=== PATIENT | female | born 1940 | race Caucasian/White ===

== ENCOUNTER 2016-09-02 14:27 | Emergency (ER) | payer OTHER, MEDICARE ==
[~2016-09-02] VITALS: Ht 157.5 cm; Wt 45.4 kg
--- NOTE | ~2016-09-02 | EKG ---
[place] [address] [facility] [place] [address] ELECTROCARDIOGRAM REPORT Name: EDWAR PEREZ Donis Room #: DEP [facility] [place]#: [id number] Admission: 09/02/16 Attend Phys: Discharge: 09/02/16 Date of : 42 Report #: [id number] THIS REPORT FOR: //name// [facility] ED Test Date: 2016-09-02 Test Time: 15:27:00 Pat Name: EDWAR PEREZ Department: Room: Gender: F House Manager: [id number] : 1940 Requested By: Kristi Jacobson Order Number: [id number] MD: Andrez Cisneros Measurements Intervals [place] Rate: 86 P: 21 UT: 158 QRS: -10 QRSD: 92 T: 58 QT: 381 QTc: 456 Interpretive Statements Sinus rhythm Abnormal R-wave progression, early transition No previous ECG available for comparison Electronically Signed On 09-03-2016 8:58:12 CDT by Andrez Cisneros [email or web address] <ELECTRONICALLY SIGNED> By: Andrez Cisneros MD, [facility] 09/03/16 0858 1527 1527 Andrez Cisneros MD, FACC /EPI
[~2016-09-02 14:27] MED LIST: LORTABELXR PO
[2016-09-02 15:24] LABS: ABSOLUTE NEUTROPHILS 3.8 thou/uL (1.4-8.2); BASOPHILS 0.7 % (0.0-2.0); EOSINOPHILS 4.1 % (0.0-3.0); HEMATOCRIT 26.8 % (37.0-47.0); HEMOGLOBIN 8.7 gm/dL (12.0-15.0); LYMPHOCYTES 25.5 % (24.0-44.0); MCH 24.7 pg (26.0-34.0); MCHC 32.4 g/dL (28.0-37.0); MCV 76.3 fL (80.0-100.0); MONOCYTES 8.1 % (1.0-8.0); PLATELET COUNT 337 thou/uL (150-400); POLYS 61.6 % (36.0-66.0); RBC 3.52 mil/uL (4.20-5.00); RDW 15.9 % (10.5-14.5); WBC 6.2 thou/uL (4.0-11.0)
[2016-09-02 15:25] LABS: MANUAL DIFF NO
[2016-09-02 15:29] LABS: CREATININE 0.5 mg/dL (0.6-1.0); POTASSIUM 4.3 mmol/L (3.5-5.1)
[2016-09-02 15:32] LABS: URINE BILIRUBIN NEGATIVE (Negative); URINE BLOOD NEGATIVE (Negative); URINE COLOR YELLOW; URINE GLUCOSE-RANDOM* NEGATIVE (Negative); URINE KETONES NEGATIVE (Negative); URINE NITRITE NEGATIVE (Negative); URINE PROTEIN (DIPSTICK) NEGATIVE (Negative); URINE SPECIFIC GRAVITY <= 1.005 (1.003-1.035); URINE UROBILINOGEN 0.2 E.U./dl (0.2-1.0)
[2016-09-02 15:33] LABS: ALBUMIN 3.8 g/dL (3.4-5.0); TOTAL BILIRUBIN 0.3 mg/dL (<0.1-1.0); TOTAL PROTEIN 7.4 g/dL (6.4-8.2)
[2016-09-02] MEDS ORDERED: IRON325 PO (16:25)
[2016-09-02] MEDS ORDERED: TRIAMCINOLONE A80 G2 TOP (16:28)
[2016-09-02 17:03] VITALS: BP 145/79
== END 2016-09-02 16:29 | disposition home or self-care (01) ==
LOC: ER 14:27
PROVIDERS: Physician Assistant
DX: G89.29 Other chronic pain (principal); M54.5 Low back pain; D64.9 Anemia, unspecified; L25.8 Unspecified contact dermatitis due to other agents; Z88.2 Allergy status to sulfonamides

== ENCOUNTER → 2017-10-07 | Outpatient (CLI) | payer OTHER, MEDICARE ==
[~2017-10-07] VITALS: Ht 149.9 cm; Wt 44.5 kg
[~2017-10-07] MED LIST changes: +ALENDRONATE SOD70 MG PO; +IRON325 PO; +NEURONTIN 300300 M1 PO; +PERCOCET PO; +SYNTHROID88 MCG PO; +TRIAMCINOLONE A80 G2 TOP
--- NOTE | ~2017-10-07 | PATH ---
[facility] [address] [place] [address] PATHOLOGY RPT PROCEDURE Name: ANGIE LIM Room #: REG LO Mary Alice.Maxine.#: [id number] Admission: 10/07/17 Date of : 42 Discharge: Report #: [id number] Path Case #: [id number] [facility] Accession Number: [id number] . 01 Material submitted: . PART A: BX SMALL BOWEL, R/O SPRUE PART B: BX GASTRITIS, R/O H. PYLORI PART C: POLYP AT RECTOSIGMOID COLON . 01 Clinical history: . Pre-OP DX: Low hemoglobin Post-OP DX: Gastritis, gastric ulcers, colon polyp . 02 Diagnosis: A. Small bowel mucosa, small bowel rule out sprue, endoscopic biopsy: - No diagnostic abnormalities present. - Negative for villous blunting or increase in intraepithelial lymphocytes. . B. Gastric mucosa, gastritis rule out H. pylori, endoscopic biopsy: - Mild reactive gastropathy. - Negative for intestinal metaplasia or atrophy. - Negative for Helicobacter pylori (properly controlled immunohistochemical stain performed). . C. Polyp, at rectosigmoid colon, endoscopic biopsy: - TUBULOVILLOUS ADENOMA WITH FOCAL HIGH GRADE DYSPLASIA. - Margin free of high-grade dysplasia. (IUV:sam; 10/10/2017) QMS/10/11/2017 . 02 Comment: Part C was coreviewed with Dr. Ivania Flores. . 02 Electronically signed: . Alondra Monk MD, Pathologist NPI- [id number] . 01 Gross description: . A. Received in formalin labeled "Angie Lim, BX small bowel, rule out sprue," are 3 segments of steele soft tissue measuring 0.9 x 0.6 x 0.2 cm in aggregate dimensions and ranging from 0.3 to 0.4 cm in maximum dimension. The specimen is submitted entirely in cassette A1. . B. Received in formalin labeled "Angie Lim, BX gastritis," are 2 segments of steele soft tissue measuring 1.1 x 0.3 x 0.2 cm in aggregate dimensions and ranging from 0.5 to 0.6 cm in maximum dimension. [facility] [address] [place] [address] PATHOLOGY RPT PROCEDURE Name: LIMANGIE E [id number] Admission: 10/07/17 Date of : 42 Discharge: Report #: [id number] Path Case #: [id number] specimen is submitted entirely in cassette B1. . C. Received in formalin labeled "Angie Lim, polyp at recto sigmoid colon," is a 0.8 x 0.6 x 0.5 cm polypoid piece of dark steele soft tissue with a stalk measuring 1.0 cm in length and 0.8 cm in diameter. The margin of the stalk is inked and the specimen is sectioned perpendicular to the margin and entirely submitted in cassette C1. (TSD; 10/07/2017) TOB/TOB . 02 Pathologist provided ICD-10: K31.9, D12.7 . 02 CPT . 170194, 992171, 704308, K52131 Performed at: [address], [place] [id number] MD Jerome Zhu MD Phone: [phone] Performed at: [address] [id number] MD Alondra Monk MD Phone: [phone]
--- NOTE | ~2017-10-07 | P ---
[facility] [address] [place] [address] PROCEDURE REPORT Name: EDWAR PEREZ Room #: REG [facility] Reza#: [id number] Admission: 10/07/17 Attend Phys: David Marrero Discharge: Date of : 42 Report #: [id number] THIS REPORT FOR: //name// CC: David Medina MD DATE OF SERVICE: 10/07/2017 PROCEDURE PERFORMED: Upper endoscopy with biopsies and esophageal dilation. HISTORY OF PRESENT ILLNESS: The patient is a 77-year-old female who is feeling increased generalized fatigue. Routine labs by her primary physician showed a hemoglobin of 5 recently, she was transfused 2 units of packed cells. She is feeling better at this time. She has been taking Aleve on a regular basis. This was held 2 days ago. She has had a history of dysphagia as well and as well as food impaction in the past. She does not take any antacids. She denies any significant reflux. Plan is for EGD and colonoscopy today. DESCRIPTION OF PROCEDURE: The risks and benefits of the procedure were explained to the patient, those risks including but not limited to bleeding, perforation, the risk of sedation. She understood these risks and gave informed consent. Sedation was given using propofol per Anesthesia. Next, using a standard Olympus upper endoscope, the scope was placed in the patient's mouth and advanced under direct vision through the esophagus, stomach and into the second portion of the duodenum. The larynx was normal in appearance. The upper and mid esophagus was mildly dilated, but otherwise normal. In the distal esophagus at the GE junction, there was a mild Schatzki's ring. Upon entering the stomach, a small hiatal hernia was noted. Multiple gastric ulcers with gastritis were noted throughout the stomach. All these were clean and white base, about approximately 3-5 mm in size. No evidence of bleeding. In the antrum; however, there was a single larger and deep ulcer, approximately 1.2 cm in size, also clean and white based. No evidence of visible vessel or clot. Again, there was no evidence of blood on exam today. This was a prepyloric ulcer. The pylorus was normal and patent. The duodenal bulb, first and second portion were all normal. Random biopsies of the duodenum were obtained to rule out the possibility of celiac sprue. The scope was then brought back into the stomach. Biopsies were obtained to rule out H. pylori. Next, a Savary guidewire was inserted through the scope, leaving the wire in place as the scope was then withdrawn. Next, a 48-Serbian Savary dilation of the esophagus was then performed without difficulty. The wire and dilator removed. The scope was reintroduced into the patient's stomach. A small mucosal tear at the Schatzki's ring was noted. No significant bleeding. The scope was then withdrawn and the procedure terminated. The patient tolerated the procedure well. IMPRESSION: [facility] [address] [place] [address] PROCEDURE REPORT Name: CHRISEDWAR Room #: SHANNAN Cobb#: [id number] Admission: 10/07/17 Attend Phys: David Marrero Discharge: Date of : 42 Report #: [id number] 1. Mild Schatzki's ring, status post dilation. 2. Small hiatal hernia. 3. Diffuse gastritis with multiple small ulcers in the gastric fundus and body. 4. Larger ulcer in the gastric antrum, approximately 1.2 cm, likely source of recent gastrointestinal bleed. No stigmata of bleeding at this time. No visible vessel. 5. Otherwise, normal upper endoscopy. RECOMMENDATIONS: 1. Await biopsy results. 2. Recommend daily PPI therapy indefinitely and continue to hold NSAIDs for the next 2 weeks. 3. Observe the patient post-dilation. 4. We will proceed with colonoscopy next today. Thank you for allowing me to participate in her care. <ELECTRONICALLY SIGNED> By: David Perdomo MD 10/08/17 1039 0919 1406 David Perdomo MD /nt
--- NOTE | ~2017-10-07 | P ---
[facility] [place] [address] [place] [address] PROCEDURE REPORT Name: EDWAR PEREZ Room #: REG [facility] Reza#: [id number] Admission: 10/07/17 Attend Phys: David Marrero Discharge: Date of : 42 Report #: [id number] THIS REPORT FOR: //name// CC: David Medina MD DATE OF SERVICE: 10/07/2017 PROCEDURE PERFORMED: Colonoscopy with polypectomy. HISTORY OF PRESENT ILLNESS: The patient is a 77-year-old female with recent history of generalized fatigue. Routine labs showed a hemoglobin of 5. She was transfused 2 units. She denies any melanotic stools. She did notice a small amount of bright red blood per rectum with the prep last evening. Upper endoscopy was just performed, which showed multiple gastric ulcers, most were small, clean, white-based in the stomach, larger one was noted in the antrum, suspect this may be the source of her anemia. There was no active bleeding. The patient has been taking Aleve on a regular basis for chronic pain. She had not been on any PPI therapy. She states her last colonoscopy was at least 20 years ago, if not longer. She does have a family history of colon cancer in her grandmother. DESCRIPTION OF PROCEDURE: The risks and benefits of the procedure were explained to the patient, those risks including but not limited to bleeding, perforation, the risk of sedation. She understood these risks and gave informed consent. Sedation was given using propofol per Anesthesia. Next, a digital rectal exam was initially performed, which was normal. Next, using a standard Olympus colonoscope, the scope was placed in the patient's anus and advanced under direct vision to the cecum. The overall prep was good. Cecum and ileocecal valve were normal in appearance. Ascending, transverse and descending colon were normal. Multiple diverticula were noted in the sigmoid colon. At the rectosigmoid colon at 15, a 1.5 cm pedunculated polyp was noted. This was removed by snare cautery in total. The rectal mucosa was normal. On retroflexion, no abnormalities were noted. The scope was then withdrawn and the procedure terminated. The patient tolerated the procedure well. IMPRESSION: 1. Sigmoid diverticulosis. 2. Polyp in the rectosigmoid colon, removed. 3. Otherwise, normal colonoscopy. RECOMMENDATIONS: 1. Await biopsy results. 2. Repeat colonoscopy in 5 years. 3. I suspect the patient's anemia is due to her larger gastric ulcer. No signs [address] [address] PROCEDURE REPORT Name: EDWAR PEREZ Room #: REG [facility]#: [id number] Admission: 10/07/17 Attend Phys: David Marrero Discharge: Date of : 42 Report #: [id number] of bleeding at this time. We would recommend indefinite PPI therapy, holding NSAIDs for the next 2 weeks. The patient did report a small amount of bright red blood per rectum with prepping last night. I suspect this may have come from the pedunculated polyp that was removed in the rectosigmoid today. I would continue to monitor hemoglobin closely. Thank you for allowing me to participate in her care. <ELECTRONICALLY SIGNED> By: David Perdomo MD 10/08/17 1039 0944 1158 David Perdomo MD /nt
[2017-10-07 08:27] LABS: HEMATOCRIT 30.2 % (37.0-47.0); HEMOGLOBIN 9.5 gm/dL (12.0-15.0)
== END | disposition home or self-care (01) ==
LOC: GI 07:28
PROVIDERS: Specialist
DX: D12.7 Benign neoplasm of rectosigmoid junction (principal); K57.30 Diverticulosis of large intestine without perforation or abscess without bleeding; K22.2 Esophageal obstruction; K44.9 Diaphragmatic hernia without obstruction or gangrene; K29.70 Gastritis, unspecified, without bleeding; K25.9 Gastric ulcer, unspecified as acute or chronic, without hemorrhage or perforation; Z80.0 Family history of malignant neoplasm of digestive organs; Z88.2 Allergy status to sulfonamides; Z79.899 Other long term (current) drug therapy
CPT/HCPCS: 62110; 62900

== ENCOUNTER 2018-01-14 09:15 | Inpatient (IN) | payer OTHER, MEDICARE ==
[~2018-01-14] VITALS: Ht 142.2 cm; Wt 44.5 kg
[2018-01-14 09:22] VITALS: BP 136/73
[2018-01-14 09:44] LABS: BASOPHILS 0.5 % (0.0-2.0); EOSINOPHILS 0.4 % (0.0-3.0); HEMOGLOBIN 12.1 gm/dL (12.0-15.0); MCH 31.5 pg (26.0-34.0); MCHC 33.7 g/dL (28.0-37.0); MCV 93.4 fL (80.0-100.0); MONOCYTES 5.2 % (1.0-8.0); PLATELET COUNT 342 thou/uL (150-400); POLYS 83.9 % (36.0-66.0); RBC 3.85 mil/uL (4.20-5.00); RDW 13.3 % (10.5-14.5); WBC 7.1 thou/uL (4.0-11.0)
[2018-01-14 09:52] LABS: CALCIUM 9.9 mg/dL (8.5-10.1); CREATININE 0.6 mg/dL (0.6-1.0); POTASSIUM 3.3 mmol/L (3.5-5.1)
[2018-01-14 09:58] LABS: ALBUMIN 3.4 g/dL (3.4-5.0); TOTAL BILIRUBIN 0.6 mg/dL (<0.1-1.0); TOTAL PROTEIN 7.7 g/dL (6.4-8.2)
[2018-01-14 09:59] LABS: URINE BILIRUBIN NEGATIVE (Negative); URINE BLOOD 1+ (Negative); URINE CLARITY CLEAR; URINE COLOR YELLOW; URINE GLUCOSE-RANDOM* NEGATIVE (Negative); URINE KETONES 1+ (Negative); URINE LEUKOCYTES-REFLEX NEGATIVE (Negative); URINE NITRITE-REFLEX NEGATIVE (Negative); URINE PROTEIN (DIPSTICK) NEGATIVE (Negative); URINE UROBILINOGEN 0.2 E.U./dl (0.2-1.0)
[2018-01-14 10:20] LABS: CASTS None Seen /LPF (None Seen); CRYSTALS None Seen /LPF (None Seen); SQUAMOUS 0-3 Few /LPF (0-3); URINE RBC 0-2 Rare /HPF (0-2); URINE WBC-REFLEX 0-5 Rare /HPF (0-5)
[2018-01-14 11:26] VITALS: BP 136/73
[2018-01-14 12:08] VITALS: BP 126/74
[2018-01-14 14:43] LABS: CALCIUM 9.5 mg/dL (8.5-10.1); CREATININE 0.5 mg/dL (0.6-1.0); POTASSIUM 3.2 mmol/L (3.5-5.1)
[2018-01-14 14:48] LABS: ALBUMIN 3.5 g/dL (3.4-5.0); TOTAL PROTEIN 7.8 g/dL (6.4-8.2)
[2018-01-14 15:13] LABS: TSH 2.08 uIU/mL (0.358-3.740)
[2018-01-14 16:33] VITALS: BP 131/69
[2018-01-14 20:30] VITALS: BP 136/70
[2018-01-14 22:18] LABS: CALCIUM 8.9 mg/dL (8.5-10.1); CREATININE 0.4 mg/dL (0.6-1.0); POTASSIUM 3.4 mmol/L (3.5-5.1)
[2018-01-15 04:30] VITALS: BP 115/70
[2018-01-15 07:01] LABS: HEMATOCRIT 34.4 % (37.0-47.0); HEMOGLOBIN 11.7 gm/dL (12.0-15.0); MCH 32.8 pg (26.0-34.0); MCV 96.5 fL (80.0-100.0); RBC 3.56 mil/uL (4.20-5.00); RDW 13.5 % (10.5-14.5); WBC 7.8 thou/uL (4.0-11.0)
[2018-01-15 07:18] LABS: CREATININE 0.4 mg/dL (0.6-1.0); MAGNESIUM 1.9 mg/dL (1.8-2.4); POTASSIUM 3.2 mmol/L (3.5-5.1)
[2018-01-15 08:13] VITALS: BP 114/59
[2018-01-15 16:52] VITALS: BP 121/66
[2018-01-15 21:46] VITALS: BP 106/55
[2018-01-16 07:27] LABS: HEMATOCRIT 33.1 % (37.0-47.0); HEMOGLOBIN 11.2 gm/dL (12.0-15.0); MCH 32.5 pg (26.0-34.0); MCHC 33.8 g/dL (28.0-37.0); MCV 96.1 fL (80.0-100.0); RBC 3.44 mil/uL (4.20-5.00); RDW 13.8 % (10.5-14.5); WBC 6.7 thou/uL (4.0-11.0)
[2018-01-16 07:35] LABS: CALCIUM 8.8 mg/dL (8.5-10.1); CREATININE 0.5 mg/dL (0.6-1.0); MAGNESIUM 1.7 mg/dL (1.8-2.4); POTASSIUM 3.9 mmol/L (3.5-5.1)
[2018-01-16 07:39] VITALS: BP 117/66
[2018-01-16] MEDS ORDERED: LEVAQUIN 750 M750 MG PO (12:35)
[2018-01-16] MEDS ORDERED: PROBIOTIC1 EAC1 PO (12:35)
[2018-01-16 14:11] VITALS: BP 117/66
== END 2018-01-16 16:30 | disposition home or self-care (01) | DRG 193 ==
LOC: ER 09:15 → SICU 10:55 → 4E 10:55 → EROBS 10:55 → 4E 12:02 → SICU 01-15 16:39 → ENTRNSPT 01-16 16:15 → SICU 01-16 16:30
PROVIDERS: Emergency Medicine; Internal Medicine
DX: J18.1 Lobar pneumonia, unspecified organism (principal); E43 Unspecified severe protein-calorie malnutrition; E87.0 Hyperosmolality and hypernatremia; E87.1 Hypo-osmolality and hyponatremia; J98.11 Atelectasis; N39.0 Urinary tract infection, site not specified; K52.9 Noninfective gastroenteritis and colitis, unspecified; E87.6 Hypokalemia; E03.9 Hypothyroidism, unspecified; G89.29 Other chronic pain; M54.9 Dorsalgia, unspecified; K75.9 Inflammatory liver disease, unspecified; E83.42 Hypomagnesemia; M62.84 Sarcopenia; N81.4 Uterovaginal prolapse, unspecified; M81.0 Age-related osteoporosis without current pathological fracture; Z87.442 Personal history of urinary calculi; Z90.710 Acquired absence of both cervix and uterus; Z79.899 Other long term (current) drug therapy; Z88.2 Allergy status to sulfonamides; Z23 Encounter for immunization
CPT/HCPCS: 10084; 15002

== ENCOUNTER 2018-02-19 15:18 | Emergency (ER) | payer OTHER, MEDICARE ==
[~2018-02-19] VITALS: Ht 142.2 cm; Wt 44.5 kg
[~2018-02-19 15:18] MED LIST changes: +LEVAQUIN 750 M750 MG PO; +PROBIOTIC1 EAC1 PO
[2018-02-19] MEDS ORDERED: OMEPRAZOLE20 M2 PO (15:22)
[2018-02-19] MEDS ORDERED: TRAMADOL 50 MG50 MG PO (15:23)
[2018-02-19 15:44] LABS: ABSOLUTE NEUTROPHILS 4.8 thou/uL (1.4-8.2); BASOPHILS 0.5 % (0.0-2.0); EOSINOPHILS 0.8 % (0.0-3.0); HEMATOCRIT 42.1 % (37.0-47.0); HEMOGLOBIN 14.4 gm/dL (12.0-15.0); LYMPHOCYTES 14.5 % (24.0-44.0); MCH 33.2 pg (26.0-34.0); MCHC 34.2 g/dL (28.0-37.0); MCV 97.2 fL (80.0-100.0); PLATELET COUNT 302 thou/uL (150-400); POLYS 78.2 % (36.0-66.0); RBC 4.33 mil/uL (4.20-5.00); RDW 13.1 % (10.5-14.5); WBC 6.1 thou/uL (4.0-11.0)
[2018-02-19 15:51] LABS: ANION GAP 7 mmol/L (7-16); BUN 8 mg/dL (7-18); CALCIUM 9.8 mg/dL (8.5-10.1); CHLORIDE 97 mmol/L (98-107); CO2 29 mmol/L (21-32); CREATININE 0.5 mg/dL (0.6-1.0); GLUCOSE 81 mg/dL (74-106); SODIUM 133 mmol/L (136-145)
[2018-02-19 15:56] LABS: POTASSIUM 4.7 mmol/L (3.5-5.1)
[2018-02-19 15:59] LABS: ALBUMIN 3.7 g/dL (3.4-5.0); MAGNESIUM 1.9 mg/dL (1.8-2.4); SGOT 36 U/L (15-37); SGPT 19 U/L (30-65); TOTAL BILIRUBIN 0.4 mg/dL (<0.1-1.0); TOTAL PROTEIN 8.3 g/dL (6.4-8.2); TROPONIN-I <0.06 ng/mL (<0.06)
[2018-02-19 16:07] LABS: URINE BILIRUBIN NEGATIVE (Negative); URINE BLOOD 1+ (Negative); URINE CLARITY CLEAR; URINE COLOR YELLOW; URINE GLUCOSE-RANDOM* NEGATIVE (Negative); URINE KETONES NEGATIVE (Negative); URINE PROTEIN (DIPSTICK) NEGATIVE (Negative)
[2018-02-19 16:08] LABS: URINE LEUKOCYTES-REFLEX NEGATIVE (Negative); URINE NITRITE-REFLEX NEGATIVE (Negative); URINE UROBILINOGEN 0.2 E.U./dl (0.2-1.0)
[2018-02-19 16:17] LABS: SQUAMOUS 4-10 Moderate /LPF (0-3)
[2018-02-19 16:18] LABS: BACTERIA-REFLEX None Seen /HPF (None Seen); CASTS None Seen /LPF (None Seen); CRYSTALS None Seen /LPF (None Seen); MUCUS None Seen strn/LPF (None Seen); URINE RBC 0-2 Rare /HPF (0-2); URINE WBC-REFLEX 0-5 Rare /HPF (0-5)
[2018-02-19] MEDS ORDERED: VENTOLIN HFA 1818 GM INH (16:50)
[2018-02-19 17:40] VITALS: BP 161/77
--- NOTE | 2018-02-19 22:05 | EKG ---
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
== END 2018-02-19 17:41 | disposition home or self-care (01) ==
LOC: ER 15:18
PROVIDERS: Emergency Medicine
DX: R53.1 Weakness (principal); R06.00 Dyspnea, unspecified; R06.02 Shortness of breath; R42 Dizziness and giddiness; E03.9 Hypothyroidism, unspecified; D64.9 Anemia, unspecified; Z88.2 Allergy status to sulfonamides

== ENCOUNTER → 2018-09-12 | Outpatient (CLI) | payer OTHER, MEDICARE ==
[~2018-09-12] VITALS: Ht 172.7 cm; Wt 42.2 kg
[~2018-09-12] MED LIST changes: +IPRATROPIUM BRO30 ML NASAL; +OMEPRAZOLE20 M2 PO; +TRAMADOL 50 MG50 MG PO; +VENTOLIN HFA 1818 GM INH
[2018-09-12 12:46] VITALS: BP 150/88
--- NOTE | 2018-09-12 12:55 | NUR ---
Pain Clinic Assessment: 1. History of Osteoarthritis: SPINE History of Rheumatoid Arthritis: NONE 2. Height: 5 ft. 8 in. 172.7 cm. Weight: 93.0 lb. oz. 42.184 kg. Patient's BMI: 14.1 3. Vital Signs: BP: 150/88 Pulse: 80 Resp: 18 Temp: 02 Sat: 97 ECG Mon: 4. Pain Intensity: 5 5. Fall Risk: Dizziness: N Needs help standing or walking: Y Fallen in the last 3 months: N Fall risk comments: 6. Patient on Blood Thinner: None 7. History of Hypertension: N 8. Opioid Therapy greater than 6 weeks: Opiate Contract Signed: 9. Risk Assessment Tool Provided: 10. Functional Assessment Tool: 11. Recreational Drug Use: Never Drug Type: Tobacco Use: Never Smoker Tobacco Type: Amount or Packs/day: How Many Years: Alcohol Use: No Frequency: Quant:
--- NOTE | 2018-09-19 09:15 | HPC ---
[facility] [place] [address] [place] [address] PAIN MANAGEMENT CONSULTATION Name: CHRISEDWAR E Room #: REG URIAH Cobb#: [id number] Admission: 09/12/18 ������������������ Attend Phys: Wang Castro DO Discharge: ������������������ Date of : 42 Report #: [id number] THIS REPORT FOR: //name// CC: Elliot Castro DATE OF SERVICE: 09/12/2018 CHIEF COMPLAINT: Low back pain, right lower extremity pain and paresthesias. HISTORY OF PRESENT ILLNESS: As you know, the patient is a 78-year-old female referred to our service to discuss lumbar radicular pain and request to undergo lumbar epidural injection to determine if her symptoms can be improved. As you are aware, the patient has significant osteoporosis that has led to multiple surgeries, but unfortunately she is not an optimal surgical candidate at this time due to bone density issues not being able to be amenable to fusion procedures. She has undergone intrathecal pump implantation and they had started medication management, but this had not provided improvement. She was subsequently referred to our clinic to trial an epidural injection. When we saw the patient in consultation on 08/15/2018, I advised the patient that the likelihood of significant improvement with a lumbar epidural injection would be minimal. She chose to undergo the procedure as "she had no other alternatives." She underwent the epidural injection that was successfully completed on 08/15/2018 with excellent epidural dye spread noted on x-ray imaging. Unfortunately, her symptoms did not improve. She received no improvement in symptoms. She continues to experience pain level of 5/10. She returns today in followup visit only to discuss the recent suggestion of making adjustments in her intrathecal pump or whether or not other options are available. ALLERGIES: SULFA MEDICATIONS. CURRENT MEDICATIONS: Gabapentin 300 mg 2 tabs 4 times a day, levothyroxine 88 mcg per day, alendronate 70 mg once a week, omeprazole 20 mg per day, tramadol 50 mg every 6 hours p.r.n. for pain, albuterol 2 puffs q.4 hours p.r.n., ipratropium bromide 2 sprays b.i.d., intrathecal pump with morphine infusion. SOCIAL HISTORY: The patient denies tobacco, alcohol, IV or illicit drug use. She is retired, retired about 12 years ago, not receiving workmen's compensation, nor is she trying to obtain disability benefits. She is accompanied by a family member present in room today. IMAGING: No new imaging available. PQRS: The patient has known arthritic changes of thoracolumbar spine, bilateral hips and hands. No rheumatoid arthritis. She is placing pain intensity at [address] [address] PAIN MANAGEMENT CONSULTATION Name: PEREZEDWAR Room #: REG CLI Quyen.#: [id number] Admission: 09/12/18 ������������������ Attend Phys: Wang Castro DO Discharge: ������������������ Date of : 42 Report #: [id number] 06/23. She is a fall risk, but has not had a fall in last 3 months. She is not on blood thinners. She is not treated for hypertension. She is not on chronic opioids. She is a low risk of opioid addiction. Pain impact score 47/70 indicating moderate to severe interference in daily activities secondary to pain. PHYSICAL EXAMINATION: VITAL SIGNS: Blood pressure 150/88, pulse 80, respiratory rate 18 and unlabored. The patient is 97% on room air. Height 5 feet 8 inches tall, weight 93 pounds, BMI calculated 14.1. GENERAL: Thin, somewhat frail appearing 78-year-old female appearing stated age, pain is rated around 5/10. HEENT: Normocephalic, atraumatic. Pupils equal, round, reactive to light. EXTREMITIES: Show no clubbing, no cyanosis, and no edema. MUSCULOSKELETAL: Well-healed surgical scars are once again noted over the intrathecal pump and the lumbar spine. There is palpatory tenderness over the paraspinal musculature of lumbar spine. No spinous process tenderness. Seated straight leg raising is positive. Supine straight leg raising positive on the right. BRANDIN test negative. Gait is significantly antalgic favoring the right lower extremity over left. ASSESSMENT: 1. Lumbar radiculopathy. 2. Failed lumbar spine surgery. 3. Lumbar degeneration. 4. Severe osteoporosis. 5. Complicated medication management. 6. Chronic intractable pain. PLAN: 1. The patient has returned today in followup visit unfortunately noticing no improvement with the epidural injection provided at last visit. We were very concerned that would be the case though. I agree with trying conservative treatment options before moving forward with more aggressive therapies. Unfortunately, from a pain management standpoint she has very few alternative treatments available to her. She has tried medications and they have either caused side effects she could not tolerate or side effects. She has subsequently been implanted with an intrathecal pump, which is currently running morphine, which is providing suboptimal coverage at this point. The fact that the epidural injection provided no improvement in symptoms would indicate no further necessity to undergo this procedure as her symptoms are not inflammatory in their presentation, but are more mechanical and requiring either surgical options or some other treatment. Would not recommend further epidural injections given her severe osteoporosis and lack of improvement. 2. The patient is to return to see the Neurosurgery team for adjustments in the intrathecal pump. We would recommend possibly adding bupivacaine to her list of [address] [place] [address] PAIN MANAGEMENT CONSULTATION Name: EDWAR PEREZ [id number] Admission: 09/12/18 ������������������ Attend Phys: Wang Castro DO Discharge: ������������������ Date of : 42 Report #: [id number] medications infused. This can provide improvement in symptoms and may reduce the potential side effects with opioids seen in the past. I will defer to the Neurosurgery team who is managing the patient's pump for this issue. 3. We wish to thank you for the opportunity to see the patient in consultation. I am sad to see that she did not notice good improvement with the epidural injection. We have provided the patient with information in regards to making adjustments in her intrathecal pump, which may be helpful. I do feel that she is not a very good candidate from a surgical standpoint and the intrathecal pump would be the most efficacious way to treat pain from this point forward. We also discussed a little bit about medications that can be added to the pump. She will discuss this with your services when she returns. 3. The patient and I had a discussion about CBD oil and the impending marijuana laws here in the state of [place]. She could certainly look into these as an option. CBD is not a regulated substance and thus the standardization of medication dosing has not been provided. This can certainly be trialed, though it is only anecdotal evidence that supports CBD use. There does not appear to be in any legal concerns with use of this medication in conjunction with her intrathecal pump. As for marijuana, it is illegal in the federal eyes currently, which does preclude the patient from having marijuana use in conjunction with opioids. There may be some changes as the laws do change from state to state, but currently this may be problematic, I advised the patient to contact the team handling her intrathecal pump in regards to THC exposure. 4. We will be returning the patient's care to your capable hands. We will see her back on an as needed basis. ��������������������������������������������� <ELECTRONICALLY SIGNED> ���������������������������������������� By: Wang Castro DO ��������������������������������������������� 09/19/1815 21 Wang Castro DO /nt
== END ==
LOC: PAIN 06:54
DX: M51.16 Intervertebral disc disorders with radiculopathy, lumbar region (principal); M81.0 Age-related osteoporosis without current pathological fracture; G89.4 Chronic pain syndrome; Z79.899 Other long term (current) drug therapy; Z88.2 Allergy status to sulfonamides

== ENCOUNTER 2018-10-06 14:10 | Emergency (ER) | payer OTHER, MEDICARE ==
[~2018-10-06] VITALS: Ht 142.2 cm; Wt 40.8 kg
[2018-10-06 14:40] LABS: ABSOLUTE NEUTROPHILS 3.2 thou/uL (1.4-8.2); BASOPHILS 0.5 % (0.0-2.0); EOSINOPHILS 2.2 % (0.0-3.0); HEMOGLOBIN 14.5 gm/dL (12.0-15.0); LYMPHOCYTES 16.9 % (24.0-44.0); MCH 32.8 pg (26.0-34.0); MCHC 34.5 g/dL (28.0-37.0); MCV 94.9 fL (80.0-100.0); MONOCYTES 7.3 % (1.0-8.0); PLATELET COUNT 249 thou/uL (150-400); POLYS 73.1 % (36.0-66.0); RBC 4.43 mil/uL (4.20-5.00); RDW 13.4 % (10.5-14.5); WBC 4.4 thou/uL (4.0-11.0)
[2018-10-06 14:48] LABS: ANION GAP 6 mmol/L (7-16); BUN 6 mg/dL (7-18); CALCIUM 9.6 mg/dL (8.5-10.1); CHLORIDE 99 mmol/L (98-107); CO2 30 mmol/L (21-32); CREATININE 0.4 mg/dL (0.6-1.0); GLUCOSE 126 mg/dL (74-106); POTASSIUM 3.5 mmol/L (3.5-5.1); SODIUM 135 mmol/L (136-145)
[2018-10-06 14:59] LABS: ALBUMIN 3.8 g/dL (3.4-5.0); LIPASE 58 U/L (73-393); SGOT 22 U/L (15-37); SGPT 18 U/L (30-65); TOTAL BILIRUBIN 0.4 mg/dL (<0.1-1.0); TROPONIN-I <0.06 ng/mL (<0.06)
[2018-10-06 15:04] VITALS: BP 158/79
[2018-10-06 16:13] LABS: URINE BILIRUBIN NEGATIVE (Negative); URINE BLOOD 1+ (Negative); URINE CLARITY CLEAR; URINE COLOR YELLOW; URINE GLUCOSE-RANDOM* NEGATIVE (Negative); URINE KETONES NEGATIVE (Negative); URINE LEUKOCYTES-REFLEX NEGATIVE (Negative); URINE NITRITE-REFLEX NEGATIVE (Negative); URINE PROTEIN (DIPSTICK) NEGATIVE (Negative); URINE UROBILINOGEN 0.2 E.U./dl (0.2-1.0)
[2018-10-06] MEDS ORDERED: ONDANSETRON ODT4 MG PO (16:13)
--- NOTE | 2018-10-08 11:40 | EKG ---
[address] [address] ELECTROCARDIOGRAM REPORT Name: PEACE PEREZTORO Dykes Room #: DEP [facility]#: [id number] Admission: 10/06/18 Attend Phys: Discharge: 10/06/18 Date of : 42 Report #: [id number] THIS REPORT FOR: //name// [facility] ED Test Date: 2018-10-06 Test Time: 15:29:52 Pat Name: EDWAR PEREZ Department: Room: Gender: F Coil Winder Strap: WG : 1940 Requested By: Mariano Armendariz Order Number: [id number] MD: Panda Sneed Measurements Intervals [place] Rate: 78 P: 36 MS: 159 QRS: -12 QRSD: 97 T: 64 QT: 394 QTc: 449 Interpretive Statements Sinus arrhythmia Compared to ECG 02/19/2018 15:23:46 Sinus rhythm no longer present Electronically Signed On 10-08-2018 11:39:53 CDT by Panda Sneed [email or web address] <ELECTRONICALLY SIGNED> By: Panda Sneed MD 10/08/18 1139 1529 1529 Panda Sneed MD /TALIA
== END 2018-10-06 16:36 | disposition home or self-care (01) ==
LOC: ER 14:10
PROVIDERS: Emergency Medicine
DX: R19.7 Diarrhea, unspecified (principal); R42 Dizziness and giddiness; Z88.2 Allergy status to sulfonamides

== ENCOUNTER 2019-11-26 13:46 | Emergency (ER) | payer OTHER, MEDICARE ==
[~2019-11-26] VITALS: Ht 142.2 cm; Wt 44.9 kg
[~2019-11-26 13:46] MED LIST changes: +ONDANSETRON ODT4 MG PO
[2019-11-26] MEDS ORDERED: NORVASC 2.5 MG2.5 M1 PO (16:43)
[2019-11-26 17:17] LABS: URINE BILIRUBIN NEGATIVE (Negative); URINE BLOOD 1+ (Negative); URINE CLARITY CLEAR; URINE COLOR YELLOW; URINE GLUCOSE-RANDOM* NEGATIVE (Negative); URINE KETONES NEGATIVE (Negative); URINE LEUKOCYTES-REFLEX NEGATIVE (Negative); URINE NITRITE-REFLEX NEGATIVE (Negative); URINE PROTEIN (DIPSTICK) NEGATIVE (Negative); URINE SPECIFIC GRAVITY <= 1.005 (1.005-1.035); URINE UROBILINOGEN 0.2 E.U./dl (0.2-1.0)
[2019-11-26 17:24] LABS: BACTERIA-REFLEX None Seen /HPF (None Seen); CASTS None Seen /LPF (None Seen); CRYSTALS None Seen /LPF (None Seen); SQUAMOUS 0-3 Few /LPF (0-3); URINE RBC 3-10 Few /HPF (0-2); URINE WBC-REFLEX 0-5 Rare /HPF (0-5)
[2019-11-26 18:07] LABS: ABSOLUTE NEUTROPHILS 2.5 thou/uL (1.4-8.2); BASOPHILS 0.5 % (0.0-2.0); EOSINOPHILS 1.4 % (0.0-3.0); HEMATOCRIT 41.1 % (37.0-47.0); HEMOGLOBIN 13.4 gm/dL (12.0-15.0); LYMPHOCYTES 24.9 % (24.0-44.0); MCH 32.2 pg (26.0-34.0); MCHC 32.6 g/dL (28.0-37.0); MCV 98.6 fL (80.0-100.0); MONOCYTES 8.6 % (1.0-8.0); PLATELET COUNT 248 thou/uL (150-400); POLYS 64.6 % (36.0-66.0); RBC 4.16 mil/uL (4.20-5.00); RDW 13.4 % (10.5-14.5); WBC 3.9 thou/uL (4.0-11.0)
[2019-11-26 18:30] LABS: ALBUMIN 4.1 g/dL (3.4-5.0); BUN 8 mg/dL (7-18); CALCIUM 9.4 mg/dL (8.5-10.1); CREATININE 0.4 mg/dL (0.6-1.0); DIRECT BILIRUBIN < 0.1 mg/dL (<0.1-0.2); GLUCOSE 98 mg/dL (74-106); LIPASE 45 U/L (73-393); SGOT 22 U/L (15-37); SGPT 15 U/L (30-65); TOTAL BILIRUBIN 0.3 mg/dL (0.2-1.0); TOTAL PROTEIN 8.1 g/dL (6.4-8.2)
[2019-11-26 18:37] LABS: ANION GAP 11 mmol/L (7-16); CHLORIDE 104 mmol/L (98-107); CO2 27 mmol/L (21-32); SODIUM 142 mmol/L (136-145)
[2019-11-26 20:21] VITALS: BP 133/78
== END 2019-11-26 20:22 | disposition home or self-care (01) ==
LOC: ER 13:46
PROVIDERS: Nurse Practitioner
DX: K59.00 Constipation, unspecified (principal); Z79.899 Other long term (current) drug therapy; Z88.2 Allergy status to sulfonamides